=== PATIENT | female | born 1940 | race Caucasian/White ===

== ENCOUNTER 2018-08-05 15:50 | Inpatient (IN) ==
[2018-08-05] MEDS ORDERED: Post-op Orders (for Pharmacy) OTHER ONE (17:08)
[2018-08-05] MEDS ORDERED: Naloxone Inj 0.4 MG/ML Vial IV.PUSH PRN (17:08)
[2018-08-05] MEDS ORDERED: Bisacodyl 10 MG Supp RECTAL PRN (17:08)
--- NOTE | 2018-08-05 18:03 | MH ---
cc: Anuradha Mata MD DATE OF ADMISSION: 08/05/2018 ADMITTING PHYSICIAN: Anuradha Mata MD, surgeon of critical care/trauma/vascular surgery. REASON FOR ADMISSION: Abdominal pain, multiple related medical/surgical problems. HISTORY OF PRESENT ILLNESS: This is an 78-year-old pleasant lady who lives between [place] and [place], broke her humerus about a month ago in [place], [place]. She was admitted to the hospital and on the same day fell in the hospital and broke her hip. The patient underwent pinning and ORIF of both. The patient was kept in the hospital and discharged home, and request was made to transfer patient to [place] for further care because the patient is experiencing functional decline. The patient is now admitted as a direct admit to our hospital for further care and management of multiple problems. The patient is a somewhat demented, but answers simple questions appropriately. She is complaining about the chronic abdominal pain and clearly has suffered functional decline since the fracture of the humerus and hip. PAST MEDICAL HISTORY: Hypertension, GERD, severe COPD. The patient is on multiple bronchodilators. Fracture of the hip, fracture of the humerus, as above noted, with surgery for both, and possible diagnosis, possible question of multiple myeloma, which has not been resolved. SOCIAL HISTORY: The patient used to smoke until about a month ago, about half pack a day for 60 years. Drinks only socially. MEDICATIONS: Can be found on the record. PHYSICAL EXAMINATION: GENERAL: Reveals a pleasant, 78-year-old lady, somewhat pleasantly demented. HEENT: Normocephalic. No trauma to the head. Pupils are equal and reactive. Extraocular muscles intact. No hemotympanum. NECK: Bilateral carotid pulses. Faint right-sided carotid bruit. No lymphadenopathy in the neck, supraclavicular, infraclavicular, axillary, or inguinal areas. CHEST: Bilateral breath sounds, decreased over both lungs flores consistent with moderate to severe COPD. The patient has loss of the chest wall musculature and signs and symptoms of pulmonary cachexia and on that superimposed functional decline with a weight loss of about 10 pounds over a short period of time. HEART: Regular rhythm. ABDOMEN: Patulous, soft, hypoactive bowel sounds. No masses, rebound or guarding. The patient is thin. I can feel her intestine essentially through the abdominal wall. No masses noted. Groins appeared to be normal. I do not see any hernias. EXTREMITIES: The patient has actually palpable femoral pulses, palpable popliteal pulses, the dorsalis pedis and posterior tibial pulses. BACK: Grossly normal. Scars from previous surgery note in the upper and lower extremities. NEUROLOGIC: As noted above, the patient has some degree of dementia; however, she is a very pleasant and with simple questions she answers appropriately. She can feed herself. She can walk around and of course recognizes her surroundings. MUSCULOSKELETAL: She is fully intact with limitations of the fracture of the arm and the leg. The patient at this point is ambulatory only with a fairly significant assistance. SENSORY: She has preserved deep tendon reflexes are normal. No pathologic reflexes. Cranial nerves 2 through 12, normal. Charlotte coma scale is 15. IMPRESSION AND RECOMMENDATIONS FOLLOWUP: The patient has multiple medical problems as outlined above. It comes down to functional decline precipitated by a fracture of the humerus followed by a fracture of the hip and clearly some recovery in the face of her age. Nonetheless, this patient is in fairly reasonable shape and has a high recovery potential. Appropriate services are consulted including Dr. Hinds for Physical Medicine and Rehabilitation, as well as OT and PT, Gastroenterology, Dr. Ashish Chowdhury, and further workup is in progress. MD SIVA Torres/jacky , 05:31 PM , 05:42 PM
--- NOTE | 2018-08-05 18:09 | XR ---
EXAM DATE: 08/05/2018 5:56 PM EST AGE/SEX: 78 years / Female INDICATIONS: Shortness of breath. CLINICAL DATA: This is the patient's initial encounter. Patient reports that signs and symptoms have been present for 1 day and indicates a pain score of 0/10. MEDICAL/SURGICAL HISTORY: None. None. COMPARISON: TLI, CTA ABDOMEN AND AORTA, 11/18/2015. . FINDINGS: A single AP view of the chest demonstrates the lungs to be symmetrically aerated without evidence of mass, infiltrate or effusion. The cardiomediastinal contours are unremarkable. Old proximal left hum eral fracture. CONCLUSION: No acute findings. Emphysema. Electronically signed by: Allen Mock MD Board Certified Radiologist 08/05/2018 6:07 PM EST
--- NOTE | 2018-08-05 19:10 | P.CONIM ---
History of Present Illness Consult date: 08/05/18 Reason for Consult: medical management Primary Care Provider: mae Samaniego Chief Complaint: abdominal pain History of Present Illness: The patient is a very pleasant frail 78 year old female with PMH of GERD, diverticulosis, Hypertension, COPD, Santos's palsy, tobaccoism, mild dementia, anxiety and recent fall with left hip fracture and left humeral fracture s/p ORIF of both. The patient broke her humerus about a month ago in [place], [place]. She was admitted to the hospital and fell in the hospital and broke her hip, patient had pinning and ORIF of both. After hospitalization the patient is noted declining. The patient is admitted as direct admit to [facility]. The patient is complaining of intermittent abdominal pain, somewhat diffuse with RLQ being the most intense pain. No radiation of pain. There is associated intermittent diarrhea, tenesmus, decreased appetite, poor PO intake. The patient reports recent loss in weight about 10 lb, unintentional. Denies nausea or vomiting. Denies fever or chills. Denies any sob or wheezing. No palpitations, chest pain. No urinary complaints. The patient also complaints of cramps in her legs, intermittent. Also the patient was recently worked up for multiple myeloma, per family had a bone marrow biopsy done by the orthopedic Dr in [place] at the time of surgery and results were negative for MM. Review of Systems Review of Systems: all other systems reviewed are negative PMFSH History History Provided By: Patient and Family Member Medical History Medical History Anxiety (Acute) COPD (chronic obstructive pulmonary disease) (Acute) Fall (Acute) GERD (gastroesophageal reflux disease) (Acute) HTN (hypertension) (Acute) Mild dementia (Acute) Surgical History Surgical History History of hip surgery (Acute) History of shoulder surgery (Acute) Family History Family History Other Alzheimer's dementia Social History Social History Substance History: No History of Abuse Second Hand Smoke Exposure: No Smoking Status: Former smoker Tobacco Type: Cigarettes Packs Per Day: 0.5 Cigarettes Per Day: 10.0 Years Smoked: 60 Pack-Years: 30.00 Smoking End Date: ~ a month ago How Often Do You Have a Drink Containing Alcohol: Never Hx Recent Travel: No Recent Travel in [facility] within the Last 8 Weeks: No Recent Out of Country Travel within the Last 8 Weeks: No Medications and Allergies Allergies Allergy/AdvReac Type Severity Reaction Status Date / Time carbamazepine AdvReac Intermediate Unverified 01/31/17 20:32 ANTIBIOTICS AdvReac Intermediate RASH Uncoded 07/28/13 09:57 Home Medications Medication Instructions Recorded Confirmed Type B1,B2,B3,B6,Y14-vzogvv-Yl-guym PO TID 08/05/18 History [Eldertonic] Calcium 600 See Label Instructions .ROUTE 08/05/18 08/05/18 History .COMPLEX Culturelle Probiotics PO DAILY 08/05/18 History Tylenol Extra Strength 08/05/18 History Vitamin B-2 08/05/18 08/05/18 History Vitamin D3 08/05/18 History Zofran PRN 08/05/18 History buspirone See Label Instructions .ROUTE 08/05/18 08/05/18 History .COMPLEX dicyclomine 20 PO TID 08/05/18 History donepezil 10 mg PO HS 08/05/18 08/05/18 History esomeprazole magnesium [Nexium] 40 mg PO DAILY 08/05/18 08/05/18 History fluoxetine 20 mg PO DAILY 08/05/18 08/05/18 History folic acid 1 mg PO DAILY 08/05/18 08/05/18 History hydroxyzine pamoate 25 mg PO TID-QID 08/05/18 08/05/18 History meclizine PRN 08/05/18 History melatonin 08/05/18 History rosuvastatin [Crestor] 10 mg PO DAILY 08/05/18 08/05/18 History tramadol PRN 08/05/18 08/05/18 History Active Medications: Active Medications Acetaminophen (Tylenol Liq) 650 mg PO Q6H PRN PRN Reason: PAIN 1-10 AND/OR FEVER >101F Al Hydroxide/Mg Hydroxide (Milk Of Magnesia Liq) 30 ml PO Q12H PRN PRN Reason: Mild Constipation Bisacodyl (Dulcolax Supp) 10 mg RECTAL DAILY PRN PRN Reason: SEVERE CONSITIPATION Buspirone HCl (Buspar) 10 mg PO BID BEATRICE Dicyclomine HCl (Bentyl) 10 mg PO QID BEATRICE Enoxaparin Sodium (Lovenox Inj) 40 mg SQ Q24H [facility]ATRICE Fluoxetine HCl (Prozac Liq) 20 mg PO DAILY BEATRICE Sodium Chloride (Ns Inj) 1,000 mls @ 60 mls/hr IV.CONT .[id number] [facility] Lactulose (Lactulose Liq) 30 ml PO DAILY PRN PRN Reason: SEVERE CONSITIPATION Naloxone HCl (Narcan Inj) 0.4 mg IV.PUSH UNSCH PRN PRN Reason: SEE LABEL COMMENTS Ondansetron HCl (Zofran Inj) 4 mg IV.PUSH Q6H PRN PRN Reason: NAUSEA OR VOMITING Pantoprazole Sodium (Protonix) 40 mg PO DAILY [facility] Senna/Docusate Sodium (Khushboo-Colace) 1 tab PO BID BEATRICE Sennosides (Senokot) 17.2 mg PO Q12H PRN PRN Reason: Moderate Constipation Tramadol HCl (Ultram) 50 mg PO Q8H PRN PRN Reason: Acute Pain Exceptiom Physical Exam Narrative: GENERAL: Very pleasant frail 78 yo female, appears in nad. SKIN: Warm and dry. HEAD: Atraumatic. Normocephalic. EYES: Pupils equal and round. No scleral icterus. No injection or drainage. ENT: No nasal bleeding or discharge. Mucous membranes pink and moist. NECK: Trachea midline. No JVD. CARDIOVASCULAR: Regular rate and rhythm. RESPIRATORY: No accessory muscle use. Decreased breath sounds. No wheezing. Loss of muscle consistent with pulmonary cachexia. GASTROINTESTINAL: Abdomen soft, diffuse tenderness, nondistended, flat, hyperactive BS in lower abdomen. No rebound. MUSCULOSKELETAL: Muscle waisting. Previous surgical scars upper and lower extremity. Extremities without clubbing, cyanosis, or edema. No obvious deformities. NEUROLOGICAL: Awake and alert. Pleasantly confused. Santos's palsy No obvious cranial nerve deficits except 7th nerve 2/2 previous Santos's palsy. Otherwise motor grossly within normal limits. Normal speech. PSYCHIATRIC: Appropriate mood and affect; insight and judgment normal. Results Imaging Impressions Chest X-Ray 08/05/18 00:00 CONCLUSION: No acute findings. Emphysema. ABG Impressions Chest X-Ray 08/05/18 00:00 CONCLUSION: No acute findings. Emphysema. Assessment and Plan Plan Very pleasant 78 yo female with: Abdominal pain, chronic. Patient takes dicyclomine, PPI, restarted. Patient also has associated diarrhea, decreased PO intake and also unintentional weight loss ~ 10 lb. H/o GERD and diverticulosis. Last seen by her GI in [place] one year ago. Will consult GI for eval. Severe protein calorie malnutrition. Will order prealbumin. Add ensure to diet. 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 Functional decline precipitated by a fracture of the humerus followed by a fracture of the hip. Consult PT/OT/ Dr Hinds. Pain meds as need. H/o COPD not with exacerbation. Patient is not taking many meds. Duonebs prn . Tobaccoism, counselled. Patient quit smoking ~ 1 month ago. Insomnia: melatonin as need Anxiety: resume home meds Mild dementia: resume home meds Muscle cramps will check electrolytes, add as need flexeryl DVT ppx scd teds lovenox Thank you for this consultation, we will follow along
[2018-08-05] MEDS: Enoxaparin Inj 40 MG/0.4 ML Syringe SQ SCH (19:51)
[2018-08-05] MEDS: Dicyclomine 10 MG Capsule PO SCH (19:51)
[2018-08-05 20:31] LABS: Baso % (Auto) 0.6 % (0.0-2.0); Eos # (Auto) 0.1 th/mm3 (0.0-0.4); Eos % (Auto) 1.4 % (0.0-4.0); Hematocrit 31.6 % (35.0-46.0); Hemoglobin 10.6 gm/dL (11.6-15.3); Lymph # (Auto) 1.8 th/mm3 (1.0-4.8); Lymph % (Auto) 27.4 % (9.0-44.0); Mean Corpuscular HGB Conc 33.4 % (32.0-36.0); Mean Corpuscular Hemoglobin 33.8 pg (27.0-34.0); Mean Corpuscular Volume 101.1 fL (80.0-100.0); Mean Platelet Volume 8.6 fL (7.0-11.0); Mono # (Auto) 0.6 th/mm3 (0.0-0.9); Mono % (Auto) 8.6 % (0.0-8.0); Neut # (Auto) 4.1 th/mm3 (1.8-7.7); Platelet Count 288 th/mm3 (150-450); Red Blood Count 3.13 mil/mm3 (4.00-5.30); Red Cell Distribution Width 16.6 % (11.6-17.2); White Blood Count 6.6 th/mm3 (4.0-11.0)
[2018-08-05 20:44] LABS: INR 1.1 Ratio; Prothrombin Time 10.9 sec (9.8-11.6)
[2018-08-05] MEDS: Senna/Docusate Sodium 8.6/50 MG Tablet PO SCH (20:51)
[2018-08-05] MEDS: Sod Chloride 0.9% Inj 1,000 ML IV.CONT SCH (20:52)
[2018-08-05 20:55] LABS: Alanine Aminotransferase 12 U/L (10-53)
[2018-08-05 20:57] LABS: Albumin 2.7 g/dL (3.4-5.0); Anion Gap 5 meq/L (5-15); Aspartate Aminotransferase 21 U/L (15-37); Blood Urea Nitrogen 13 mg/dL (7-18); Calcium 8.5 mg/dL (8.5-10.1); Chloride 108 meq/L (98-107); Glomerular Filtration Rate 62 mL/min (>89); Glucose,Random 110 mg/dL (74-106); Sodium 141 meq/L (136-145)
[2018-08-05 20:58] LABS: Alkaline Phosphatase 99 U/L (45-117); Total Protein 7.4 g/dL (6.4-8.2)
--- NOTE | 2018-08-05 23:02 | US ---
EXAM DATE: 08/05/2018 10:53 PM EST AGE/SEX: 78 years / Female INDICATIONS: Bruit. CLINICAL DATA: This is the patient's initial encounter. Patient reports that signs and symptoms have been present for 1 day and indicates a pain score of 0/10. MEDICAL/SURGICAL HISTORY: Chronic obstructive pulmonary disease. Gastroesophageal reflux disea se. Hypertension. Hip fracture. None. COMPARISON: TLI, CTA ABDOMEN AND AORTA, 11/18/2015. . VELOCITY PARAMETERS: ICA/CCA Ratio: Right 2.0 , Left 0.9 ICA: Right 116 cm/sec, Left 90 cm/sec CCA: Right 57 cm/sec, Left 103 cm/sec ECA: Right 66 cm/sec, Left 120 cm/sec Vertebral: Right 87 cm/sec antegrade, Left 102 cm/sec antegrade FINDINGS: Right Carotid: Moderate arteriosclerotic plaque is visualized.The waveforms are within normal limits . Left Carotid: Moderate arteriosclerotic plaque is visualized. The waveforms are within normal limits . Other: None. CONCLUSION: 1. Right Internal Carotid Artery: Moderate atherosclerotic plaquing throughout the common carotid ex tending up into the bifurcation with Doppler velocities and ratios suggesting a 50-69% associated eloy nosis. 2. Left Internal Carotid Artery: Moderate atherosclerotic plaquing throughout the common carotid ext ending up into the bifurcation with no sonographic or Doppler findings of a hemodynamically significa nt stenosis. 3. Antegrade flow in both vertebral arteries. Electronically signed by: Ricky Castaneda MD Board Certified Radiologist 08/05/2018 11:01 PM EST
--- NOTE | 2018-08-05 23:04 | US ---
EXAM DATE: 08/05/2018 10:54 PM EST AGE/SEX: 78 years / Female INDICATIONS: Bilateral leg swelling post hip fracture. CLINICAL DATA: This is the patient's initial encounter. Patient reports that signs and symptoms have been present for 1 day and indicates a pain score of 2/10. MEDICAL/SURGICAL HISTORY: Chronic obstructive pulmonary disease. Gastroesophageal reflux disea se. Hypertension. Hip fracture. None. COMPARISON: No prior exams available for comparison. TECHNIQUE: Venous ultrasound of both lower extremities was performed from the inguinal ligament to t he proximal calf. Real-time, color Doppler and spectral tracing, compression and augmentation techni ques were used. FINDINGS: Right Leg: Normal compression of the deep venous system from the inguinal region to the proximal ivanna f. No echogenic clot is seen. Normal response of the venous system to augmentation and respiration. Left Leg: Normal compression of the deep venous system from the inguinal region to the proximal calf . No echogenic clot is seen. Normal response of the venous system to augmentation and respiration. Other: Dense atherosclerotic calcification throughout the visualized portions of the lower extremity arterial system bilaterally. CONCLUSION: Negative exam. No sonographic or Doppler findings of deep venous thrombosis. Electronically signed by: Ricky Castaneda MD Board Certified Radiologist 08/05/2018 11:02 PM EST
[2018-08-06 05:59] LABS: Baso # (Auto) 0.1 th/mm3 (0.0-0.2); Eos # (Auto) 0.1 th/mm3 (0.0-0.4); Eos % (Auto) 2.4 % (0.0-4.0); Hematocrit 34.4 % (35.0-46.0); Hemoglobin 11.3 gm/dL (11.6-15.3); Lymph # (Auto) 2.1 th/mm3 (1.0-4.8); Mean Corpuscular HGB Conc 32.8 % (32.0-36.0); Mean Corpuscular Hemoglobin 33.3 pg (27.0-34.0); Mean Corpuscular Volume 101.7 fL (80.0-100.0); Mean Platelet Volume 8.5 fL (7.0-11.0); Mono # (Auto) 0.5 th/mm3 (0.0-0.9); Mono % (Auto) 8.8 % (0.0-8.0); Neut # (Auto) 2.8 th/mm3 (1.8-7.7); Neut % (Auto) 50.8 % (16.0-70.0); Platelet Count 295 th/mm3 (150-450); Red Blood Count 3.38 mil/mm3 (4.00-5.30); Red Cell Distribution Width 16.7 % (11.6-17.2); White Blood Count 5.6 th/mm3 (4.0-11.0)
[2018-08-06 06:30] LABS: Anion Gap 4 meq/L (5-15); Blood Urea Nitrogen 11 mg/dL (7-18); Calcium 8.5 mg/dL (8.5-10.1); Carbon Dioxide 29.7 meq/L (21.0-32.0); Chloride 111 meq/L (98-107); Glomerular Filtration Rate 68 mL/min (>89); Glucose,Random 83 mg/dL (74-106); Iron 37 mcg/dL (50-170); Potassium 3.7 meq/L (3.5-5.1); Sodium 145 meq/L (136-145)
[2018-08-06 06:54] LABS: % Iron Saturation 16.1 % (20-50); Ferritin 135 ng/mL (8-252); Prealbumin 13 mg/dL (20-40); Total Iron Binding Capacity 230 mcg/dL (250-450); Vitamin B12 853 pg/mL (193-986)
[2018-08-06] MEDS: Dicyclomine 10 MG Capsule PO SCH ×4 (08:17→20:24)
[2018-08-06] MEDS: Senna/Docusate Sodium 8.6/50 MG Tablet PO SCH ×2 (08:17→20:24)
--- NOTE | 2018-08-06 09:13 | P.PNIM ---
Subjective Interval history: in no acute distress. has mild epigastric pain and on and off nausea. Physical Exam Vital signs: Vital Signs 08/05/18 20:00 08/06/18 00:10 08/06/18 04:05 Temperature 97.5 F L 97.4 F L 97.6 F Pulse Rate 56 L 63 63 Respiratory Rate 17 17 16 Blood Pressure 130/63 132/63 135/61 Pulse Oximetry 93 L 94 L 95 Intake & Output 08/05/18 08/06/18 08/06/18 18:59 06:59 18:59 Intake Total 360 / 360 Balance 360 / 360 Weight 43.2 kg Intake: Oral 360 / 360 Other: # Voids 5 # Bowel Movements 0 Constitutional no acute distress Routine Respiratory Exam Present CTA bilaterally Routine Cardiovascular Exam Present RRR Routine Abdominal Exam Present soft and tenderness Comments: mild epigastric tenderness. Routine Extremities Exam Comments: no pedal edema. Routine Neurological Exam Present alert Results Labs CBC & Chem 7: 08/06/18 05:23 08/06/18 05:23 Imaging Imaging: Impressions Carotid Doppler Study 08/05/18 00:00 CONCLUSION: 1. Right Internal Carotid Artery: Moderate atherosclerotic plaquing throughout the common carotid extending up into the bifurcation with Doppler velocities and ratios suggesting a 50-69% associated stenosis. 2. Left Internal Carotid Artery: Moderate atherosclerotic plaquing throughout the common carotid extending up into the bifurcation with no sonographic or Doppler findings of a hemodynamically significant stenosis. 3. Antegrade flow in both vertebral arteries. Chest X-Ray 08/05/18 00:00 CONCLUSION: No acute findings. Emphysema. Venous Doppler Study 08/05/18 00:00 CONCLUSION: Negative exam. No sonographic or Doppler findings of deep venous thrombosis. Assessment and Plan Plan A/P Abdominal pain, chronic. Patient takes dicyclomine, PPI, restarted. Patient also has associated diarrhea, decreased PO intake and also unintentional weight loss ~ 10 lb. H/o GERD and diverticulosis. Last seen by her GI in [place] one year ago. awaiting GI evaluation. Severe protein calorie malnutrition. continue ensure to diet. 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 Functional decline precipitated by a fracture of the humerus followed by a fracture of the hip. Consulted PT/OT/ Dr Hinds. Pain meds as need. near-syncope carotid doppler with no significant stenosis- echo pending. H/o COPD not with exacerbation. Patient is not taking many meds. Duonebs prn . Tobaccoism, counselled. Patient quit smoking ~ 1 month ago. Insomnia: melatonin as need Anxiety: resumed home meds Mild dementia: resumed home meds DVT ppx scd teds lovenox Progress Note: Quality VTE Deep Vein Thrombosis/Pulmonary Embolism Present on Admission: No
[2018-08-06] MEDS: Sod Chloride 0.9% Inj 1,000 ML IV.CONT SCH (12:48)
--- NOTE | 2018-08-06 14:13 | MB ---
cc: Katarina Bhandari MD DATE: 08/06/2018 REASON FOR CONSULTATION: Abdominal pain. HISTORY OF PRESENT ILLNESS: This is a very pleasant 78-year-old female known to me from the office several years ago. She has a history of irritable bowel syndrome in the past. She lives between [place], [place]. She was apparently in her usual state of health until about a month ago, had a fall and had a fractured humerus, which required surgical intervention. She was admitted in the hospital. During the hospitalization, she did reasonably well and sometime near the end of her hospital stay, she did have a second fall and sustained a hip fracture, which required ORIF. She had good resolution of her hip pain with rehabilitation, but during that time, she has been noted to have decline in her appetite, reduced p.o. intake, as well as complaints of having pain. Her main complaint currently is intermittent abdominal discomfort in the bilateral lower quadrants below the umbilicus in the suprapubic region. She denies any radiation to the groin or radiation up into the abdomen. It is difficult to ascertain if food is related to that, but it is noted that she avoids eating to avoid having pain. She has intermittent bowel habit changes including diarrhea and constipation, but denies any blood in the stool. She does have a 24-hour caregiver with her that helps with the history taking. Overall, due to the several hospitalizations and the abdominal symptoms, her oral intake has gone down, which has led to about 10 pounds of unintentional weight loss. She has no fevers, chills. No nausea or vomiting. There is some mention of abnormalities in her urine that may have showed protein and further workup was performed and just prior to her fall, she was to get a bone marrow biopsy and evaluation of multiple myeloma. During the hip surgery, an intraoperative bone marrow biopsy was performed and according to the patient's family, this was negative, that she does not have multiple myeloma. A lot of this history is taken from the patient and the family members that are at bedside who are very informed and appropriate. Unfortunately, I do not have any records to review at this time. PAST MEDICAL HISTORY: Irritable bowel syndrome, anxiety, COPD, GERD, hypertension, dementia. PAST SURGICAL HISTORY: Recent hip repair surgery and humerus repair surgery. FAMILY HISTORY: Alzheimer dementia. SOCIAL HISTORY: No history of illicit drug use. History of tobacco use and no alcohol use. ALLERGIES: CARBAMAZEPINE. HOME MEDICATIONS: Please see MAR for complete accurate list. REVIEW OF SYSTEMS: A 12-point review of system was obtained and showed negative or noncontributory except for the above-mentioned in the HPI. PHYSICAL EXAMINATION: VITAL SIGNS: Temperature 97.4, heart rate of 72, respirations 20, blood pressure 140/77, 98 mean and 92% on room air. GENERAL: Alert, oriented. No focal deficits. Cranial nerves 2-12 grossly intact. Distant memory intact. Slight forgetfulness, but answers questions appropriately. HEENT: Atraumatic. Slight temporal wasting. Pupils equal, round, reactive to light and accommodations. NECK: Supple. No carotid bruits noted. CARDIAC: S1, S2 normal. No murmur. LUNGS: CTAB. No wheeze heard. Respirations are nonlabored. ABDOMEN: Soft. Minimal tenderness to palpation in the suprapubic region. No rebound appreciated. No periumbilical ecchymosis noted. No flank tenderness noted. No hepatosplenomegaly appreciated. No tenderness noted in the epigastric region. EXTREMITIES: No edema noted. No hip tenderness. MUSCULOSKELETAL: Equal length of upper and lower extremities. Good range of motion. GENITOURINARY: No CVA tenderness. LYMPHATICS: No lymphadenopathy noted. NEUROLOGIC: Alert and oriented. No focal deficits. PSYCHIATRIC: Cooperative, appropriate mood and affect. LABORATORY DATA: WBC 5.6, hemoglobin 11.3, platelet count of 295. Sodium 145, potassium 3.0, chloride 111, bicarbonate 29, BUN 11, creatinine 0.81. Iron saturation 16. AST 21, ALT 12, alkaline phosphatase 99. IMPRESSION: 1. Abdominal pain in the suprapubic region, etiology unclear. Wide differential diagnosis including occult urinary tract infection, cystitis, genitourinary versus colonic or small bowel. Less likely to be diverticular. 2. History of irritable bowel syndrome. 3. Weight loss with reduced oral intake. RECOMMENDATIONS: 1. CT scan of the abdomen and pelvis with and without contrast. 2. Diet as tolerated without restrictions. Encourage oral intake. Discussed with the patient and family that if she continues to lose weight, we may consider offering a feeding tube, but she is adamant that is not a way that she wants and she did not wish to have a feeding tube placed. Therefore, at this time, in regard to increasing her nutrition, it will be by encouraging more oral intake. Recommended nutrition supplement such as Ensure, Boost or Magic Cup. 3. Suprapubic pain that may be related to urinary disease. Therefore, at this time, I will add Pyridium to see if that would improve her suprapubic symptoms. Also order a urinalysis with culture and sensitivities to rule out any occult urinary tract infection. 4. This was discussed in great detail with the patient and the family and they are in agreement and very appreciative of this plan. Thank you for allowing me to participate in the care of the patient. We will follow along with you and make recommendations as per the patient's clinical course. Katarina Bhandari MD KRP/es , 01:28 PM , 01:44 PM
[2018-08-06 14:20] LABS: Bacteria,Urine Few /hpf; Bilirubin,Urine Negative (Negative); Clarity,Urine Hazy (Clear); Color,Urine Amber (Yellw/Straw); Glucose,Urine (UA) Negative (Negative); Leukocyte Esterase,Urine Trace (Negative); Mucus,Urine Few /lpf (Occasional); Nitrite,Urine Positive (Negative); Specific Gravity,Urine 1.013 (1.002-1.035); Squamous Epithelial Cell,Urine 3 /hpf (0-5); Urobilinogen,Urine 0.2 mg/dL (Less than 2)
--- NOTE | 2018-08-06 15:18 | ECG ---
Date Performed: 08/05/2018 Time Performed: 21:18:42 PTAGE: 78 years EKG: Sinus rhythm NORMAL ECG Since PREVIOUS TRACING , no significant change noted PREVIOUS TRACIN07/28/2013 10.12 DOCTOR: Junior Glynn Interpretating Date/Time 08/06/2018 15:17:31
--- NOTE | 2018-08-06 16:11 | P.DIET ---
Nutritional Evaluation Type of nutrition evaluation: initial Nutrition consult regarding: Diet Evaluation Nutrition screening: Poor PO Intake Screening comments: 08/06/18 [facility] [place] PPI (protein calorie malnutrition) Subjective Subjective Comments: Family member present during RD visit. Pt seemed unmotivated and uninterested in food when speaking about diet and appetite. RD encouraged pt to increase PO intake and told her to ask for foods she would like to eat to family members and staff. Objective - Diagnosis abdominal pain - Objective Body Mass Index: 18.6 % IBW: 119 (IBW = 80lb) Body Weight Used for Calculations: Actual Energy Needs - Lower Range (kCal/kg): 28 Energy Needs - Upper Range (kCal/kg): 32 Lower Limit kCal/kg (kCals): 1,210 Upper Limit kCal/kg (kCals): 1,382 Lower Limit Protein Factor (Grams per Kg): 1.2 Upper Limit Protein Factor (Grams per Kg): 1.4 Lower Protein Needs (Protein): 52 Upper Protein Needs (Protein): 61 Dietitian Reviewed in Medical Record: Current diet, Curent medications, Intake & Output, Labs, Medical history Diet Order: full liquid diet, w/ ensure original TID Oral Diet Intake Amount: Poor <50% Objective Comments: PMH: GERD, HTN, mild dementia Meds: MVI LabS: estGFR 68 Assessment Assessment: Pt currently at nutritional risk r/t reported poor PO intake. Per chart, pt reported a total of 10lb of unintentional wt loss for pt prior to admission. Pt had a decreased appetite and poor PO intake. Pt currently on a full liquid diet w/ Ensure Original TID and consuming a variable intake of 25-75% per chart. RD to recommend encouraging PO intake and provide feeding assistance as needed. Continue to monitor PO and supplement intake, diet advancement. Labs reviewed, dietitian following. Recommendations: 1. RD to recommend encouraging PO intake and provide feeding assistance as needed 2. Continue to monitor PO and supplement intake, diet advancement 3. Dietitian following Dietitian to Monitor: Lab values, Intake & Output, Diet tolerance, Weight change , PO Intake, Medical course
--- NOTE | 2018-08-06 17:08 | P.PNVS ---
Subjective Subjective/Hospital Course: 6-year-old lady with multiple medical problems including noticeable functional decline and moderate degree of cognitive disorder, status post humerus and hip fracture now with some degree of abdominal pain and poor appetite Patient was admitted yesterday worked up This morning she is awake alert oriented Hemodynamically stable Bilateral breath sounds decreased consistent with COPD Abdomen is soft with active bowel sounds very patulous but patient simply not hungry and hence the poor oral intake Laboratory studies are unremarkable Urinary cultures pending GI consult by Dr. Bhandari is greatly appreciated and so is the OT and PT evaluation Was evaluated by Dr. Hinds patient will most likely transferred to [facility] for further rehabilitation Patient is encouraged to take p.o. Nothing to add to care at this time Objective Vital Signs / I&O: Vital Signs 08/05/18 20:00 08/06/18 00:10 08/06/18 04:05 Temperature 97.5 F L 97.4 F L 97.6 F Pulse Rate 56 L 63 63 Respiratory Rate 17 17 16 Blood Pressure 130/63 132/63 135/61 Pulse Oximetry 93 L 94 L 95 08/06/18 08:00 Temperature 97.4 F L Pulse Rate 72 Respiratory Rate 20 Blood Pressure 140/77 Pulse Oximetry 92 L Intake & Output 08/05/18 08/06/18 08/06/18 18:59 06:59 18:59 Intake Total 360 / 360 1000 / 1000 Balance 360 / 360 1000 / 1000 Weight 43.2 kg 43.2 kg Intake: IV 1000 / 1000 NS Inj 1,000 ML @ 60 mls/hr IV. 1000 / 1000 CONT .[id number] [facility] Rx#:[id number] Oral 360 / 360 Other: # Voids 5 Date of Last Bowel Movement 08/06/18 # Bowel Movements 0 Weight On Admission 43.2 kg Laboratory Results - last 24 hr 08/05/18 08/05/18 08/05/18 19:32 19:32 19:32 WBC 6.6 RBC 3.13 L Hgb 10.6 L Hct 31.6 L MCV 101.1 H MCH 33.8 MCHC 33.4 RDW 16.6 Plt Count 288 MPV 8.6 Neut % (Auto) 62.0 Lymph % (Auto) 27.4 [place] % (Auto) 8.6 H Eos % (Auto) 1.4 Baso % (Auto) 0.6 Neut # (Auto) 4.1 Lymph # (Auto) 1.8 [place] # (Auto) 0.6 Eos # (Auto) 0.1 Baso # (Auto) 0.0 WBC Differential . Differential Comment Auto diff final PT 10.9 INR 1.1 Sodium 141 Potassium 4.0 Chloride 108 H Carbon Dioxide 28.0 Anion Gap 5 BUN 13 Creatinine 0.88 Estimated GFR 62 L Random Glucose 110 H Calcium 8.5 Iron TIBC % Saturation Ferritin Total Bilirubin 0.2 Direct Bilirubin Less than 0.1 Indirect Bilirubin 0.1 AST 21 ALT 12 Alkaline Phosphatase 99 Total Protein 7.4 Albumin 2.7 L Prealbumin Vitamin B12 Vitamin D 25-Hydroxy Folate TSH Urine Color Urine Clarity Urine pH Ur Specific [place] Urine Protein Urine Glucose (UA) Urine Ketones Urine Occult Blood Urine Nitrate Urine Bilirubin Urine Urobilinogen Ur Leukocyte Esterase Urine RBC Urine WBC Ur Squamous Epith Cells Urine Bacteria Urine Mucus Micro UA Comment Ur Microscopic Review Urine Culture Comments 08/06/18 08/06/18 08/06/18 05:23 05:23 13:50 WBC 5.6 RBC 3.38 L Hgb 11.3 L Hct 34.4 L MCV 101.7 H MCH 33.3 MCHC 32.8 RDW 16.7 Plt Count 295 MPV 8.5 Neut % (Auto) 50.8 Lymph % (Auto) 37.0 [place] % (Auto) 8.8 H Eos % (Auto) 2.4 Baso % (Auto) 1.0 Neut # (Auto) 2.8 Lymph # (Auto) 2.1 [place] # (Auto) 0.5 Eos # (Auto) 0.1 Baso # (Auto) 0.1 WBC Differential . Differential Comment Auto diff final PT INR Sodium 145 Potassium 3.7 Chloride 111 H Carbon Dioxide 29.7 Anion Gap 4 L BUN 11 Creatinine 0.81 Estimated GFR 68 L Random Glucose 83 Calcium 8.5 Iron 37 L TIBC 230 L % Saturation 16.1 L Ferritin 135 Total Bilirubin Direct Bilirubin Indirect Bilirubin AST ALT Alkaline Phosphatase Total Protein Albumin Prealbumin 13 L Vitamin B12 853 Vitamin D 25-Hydroxy 47.4 Folate Greater than 20.0 H TSH 1.920 Urine Color Yazmin Urine Clarity Hazy H Urine pH 6.0 Ur Specific [place] 1.013 Urine Protein Negative Urine Glucose (UA) Negative Urine Ketones Negative Urine Occult Blood Negative Urine Nitrate Positive H Urine Bilirubin Negative Urine Urobilinogen 0.2 Ur Leukocyte Esterase Trace H Urine RBC 3 Urine WBC 8 H Ur Squamous Epith Cells 3 Urine Bacteria Few H Urine Mucus Few H Micro UA Comment Culture indicated Ur Microscopic Review Not Reportable Urine Culture Comments Culture indicated Impressions Carotid Doppler Study 08/05/18 00:00 CONCLUSION: 1. Right Internal Carotid Artery: Moderate atherosclerotic plaquing throughout the common carotid extending up into the bifurcation with Doppler velocities and ratios suggesting a 50-69% associated stenosis. 2. Left Internal Carotid Artery: Moderate atherosclerotic plaquing throughout the common carotid extending up into the bifurcation with no sonographic or Doppler findings of a hemodynamically significant stenosis. 3. Antegrade flow in both vertebral arteries. Chest X-Ray 08/05/18 00:00 CONCLUSION: No acute findings. Emphysema. Venous Doppler Study 08/05/18 00:00 CONCLUSION: Negative exam. No sonographic or Doppler findings of deep venous thrombosis.
[2018-08-06] MEDS: Enoxaparin Inj 40 MG/0.4 ML Syringe SQ SCH (17:45)
--- NOTE | 2018-08-06 19:07 | ECHRPT ---
Indication: Shortness of Breath CONCLUSIONS The left ventricular systolic function is normal with an estimated ejection fraction in the range of 55-60%. Trace mitral valve regurgitation. There is mild tricuspid valve regurgitation. BP: / HR: Rhythm: MEASUREMENTS (Male / Female) Normal Values Technical Quality:Fair 2D ECHO LV Diastolic Diameter PLAX 3.4 cm 4.2 - 5.9 / 3.9 - 5.3 cm LV Systolic Diameter PLAX 2.4 cm IVS Diastolic Thickness 0.8 cm 0.6 - 1.0 / 0.6 - 0.9 cm LVPW Diastolic Thickness 0.8 cm 0.6 - 1.0 / 0.6 - 0.9 cm LV Relative Wall Thickness 0.5 RV Internal Dim ED PLAX 1.8 cm LVOT Diameter 1.6 cm Aortic Root Diameter 2.4 cm LA Systolic Diameter LX 2.4 cm 3.0 - 4.0 / 2.7 - 3.8 cm DOPPLER AV Peak Velocity 151.0 cm/s AV Peak Gradient 9.1 mmHg LVOT Peak Velocity 103.0 cm/s LVOT Peak Gradient 4.2 mmHg AV Area Cont Eq pk 1.4 cm Mitral E Point Velocity 82.4 cm/s Mitral A Point Velocity 87.4 cm/s Mitral E to A Ratio 0.9 LV E' Lateral Velocity 8.2 cm/s Mitral E to LV E' Lateral Ratio 10.1 LV E' Septal Velocity 6.7 cm/s Mitral E to LV E' Septal Ratio 12.2 TR Peak Velocity 266.0 cm/s TR Peak Gradient 28.3 mmHg Right Atrial Pressure 10.0 mmHg Pulmonary Artery Systolic Pressu 38.3 mmHg Right Ventricular Systolic Press 38.3 mmHg PV Peak Velocity 89.6 cm/s PV Peak Gradient 3.2 mmHg FINDINGS LEFT VENTRICLE Normal left ventricular size. Wall thickness is normal. The left ventricular systolic function is normal with an estimated ejection fraction in the range of 55-60%. RIGHT VENTRICLE Grossly normal LEFT ATRIUM The left atrial size is normal. RIGHT ATRIUM The right atrial size is normal. ATRIAL SEPTUM Normal atrial septal thickness without atrial level shunting by limited color doppler interrogation. AORTA The aortic root and proximal ascending aorta are normal in size on limited imaging. MITRAL VALVE Structurally normal mitral valve. No mitral valve stenosis. Trace mitral valve regurgitation. AORTIC VALVE Trileaflet aortic valve. No aortic valve stenosis or regurgitation. TRICUSPID VALVE Structurally normal tricuspid valve. There is mild tricuspid valve regurgitation. The estimated pulmonary arterial pressure is 38 mmHg. PULMONARY VALVE No pulmonary valve regurgitation or stenosis. VESSELS The inferior vena cava is normal in size. PERICARDIUM No pericardial effusion. Cristian Bain DO (Electronically Signed) Final Date:06 August 2018 19:06
[2018-08-06] MEDS: Melatonin 5 MG Tablet PO PRN (20:24)
--- NOTE | 2018-08-06 22:18 | CT ---
EXAM DATE: 08/06/2018 10:11 PM EST AGE/SEX: 78 years / Female INDICATIONS: Abdominal pain and weight loss. CLINICAL DATA: This is the patient's initial encounter. Patient reports that signs and symptoms have been present for 2 days and indicates a pain score of 5/10. MEDICAL/SURGICAL HISTORY: Chronic obstructive pulmonary disease. Hypertension. Gastroesophage al reflux disease. . Hip surgery ORAL CONTRAST: No oral contrast ingested. RADIATION DOSE: 6.64 CTDI (mGy) COMPARISON: TLI, CTA ABDOMEN AND AORTA, 11/18/2015. . TECHNIQUE: Multiple contiguous axial images were obtained through the abdomen and pelvis following b olus infusion of 98 ml Omnipaque 350 (iohexol) nonionic water-soluble contrast as a single exam dos e. No oral contrast ingested. Using automated exposure control and adjustment of the mA and/or kV ac cording to patient size, radiation dose was kept as low as reasonably achievable to obtain optimal di agnostic quality images. DICOM format image data is available electronically for review and comparis on. FINDINGS: Mild emphysema at the lung bases. No acute findings in the liver, spleen, adrenals, kidneys or pancreas. Proximal celiac stenosis prese nt similar to prior CTA from November 2015. No free fluid. No bowel obstruction. No adenopathy. Previous screw fixation right femur. No acute bon y abnormalities. There is colonic diverticulosis without evidence for diverticulitis. CONCLUSION: 1. No acute findings. 2. Nonacute findings include proximal celiac stenosis similar to prior CTA from November 2015, emphysema , screw fixation right femur, colonic diverticulosis. Electronically signed by: Allen Mock MD Board Certified Radiologist 08/06/2018 10:17 PM EST
[2018-08-07] MEDS: Sod Chloride 0.9% Inj 1,000 ML IV.CONT SCH ×3 (05:11→20:25)
[2018-08-07] MEDS: Megestrol Acetate Liq 400 MG/10 ML UDC PO SCH (09:00)
[2018-08-07] MEDS: Dicyclomine 10 MG Capsule PO SCH ×4 (09:31→20:20)
--- NOTE | 2018-08-07 09:45 | P.PNIM ---
Subjective Interval history: in no acute distress. has mild lower abdominal discomfort. d/w the RN and no acute issues over night. Physical Exam Vital signs: Vital Signs 08/06/18 16:00 08/06/18 20:26 08/06/18 23:50 Temperature 97.8 F 97.3 F L 97.7 F Pulse Rate 71 79 88 Respiratory Rate 20 17 17 Blood Pressure 145/66 H 146/69 H 186/84 H Pulse Oximetry 92 L 95 94 L 08/07/18 05:19 08/07/18 08:00 Temperature 97.6 F 97.2 F L Pulse Rate 77 62 Respiratory Rate 16 19 Blood Pressure 182/80 H 120/58 L Pulse Oximetry 93 L 96 Intake & Output 08/06/18 08/07/18 08/07/18 18:59 06:59 18:59 Intake Total 1000 / 1000 1720 / 1720 Balance 1000 / 1000 1720 / 1720 Weight 43.2 kg 44.2 kg Intake: IV 1000 / 1000 1000 / 1000 NS Inj 1,000 ML @ 60 mls/hr IV. 1000 / 1000 1000 / 1000 CONT .[id number] [facility] Rx#:[id number] Oral 720 / 720 Other: # Voids 4 11 Date of Last Bowel Movement 08/06/18 08/06/18 # Bowel Movements 0 Weight On Admission 43.2 kg Constitutional no acute distress Routine Respiratory Exam Present CTA bilaterally Routine Cardiovascular Exam Present RRR Routine Abdominal Exam Present soft Routine Extremities Exam Comments: no pedal edema. Routine Neurological Exam Present alert Results Labs CBC & Chem 7: 08/06/18 05:23 08/06/18 05:23 Imaging Imaging: Impressions Abdomen/Pelvis CT 08/06/18 00:00 CONCLUSION: 1. No acute findings. 2. 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 Assessment and Plan Plan A/P Abdominal pain, chronic. Patient takes dicyclomine, PPI, restarted. Patient also has associated diarrhea, decreased PO intake and also unintentional weight loss ~ 10 lb. H/o GERD and diverticulosis. Last seen by her GI in [place] one year ago. GI consult appreciated. CT of the abdomen with no acute abnormality. Severe protein calorie malnutrition. continue ensure to diet. Consulted installer technician. Functional decline precipitated by a fracture of the humerus followed by a fracture of the hip. Consulted PT/OT/ Dr Hinds. Pain meds as need. near-syncope carotid doppler with no significant stenosis- echo with EF 55%. UTI start on Cipro and follow the UC. H/o COPD not with exacerbation. Patient is not taking many meds. Duonebs prn . Tobaccoism, counselled. Patient quit smoking ~ 1 month ago. Insomnia: melatonin as need Anxiety: resumed home meds Mild dementia: resumed home meds DVT ppx scd teds lovenox Discharge Planning: dc to rehab when cleared by GI. Progress Note: Quality VTE Deep Vein Thrombosis/Pulmonary Embolism Present on Admission: No
[2018-08-07] MEDS: Senna/Docusate Sodium 8.6/50 MG Tablet PO SCH ×2 (10:18→20:21)
--- NOTE | 2018-08-07 10:59 | P.PNGI ---
Subjective Interval history: Pt seen, reviewed Ct scan, labs and UA. events of last night d/w family. discussed CT with family. No acute findings. Stable celiac artery stenosis.no diverticulitis. UA positive. starter on cipro yesterday Physical Exam Vital signs: Vital Signs 08/06/18 16:00 08/06/18 20:26 08/06/18 23:50 Temperature 97.8 F 97.3 F L 97.7 F Pulse Rate 71 79 88 Respiratory Rate 20 17 17 Blood Pressure 145/66 H 146/69 H 186/84 H Pulse Oximetry 92 L 95 94 L 08/07/18 05:19 08/07/18 08:00 Temperature 97.6 F 97.2 F L Pulse Rate 77 62 Respiratory Rate 16 19 Blood Pressure 182/80 H 120/58 L Pulse Oximetry 93 L 96 Intake & Output 08/06/18 08/07/18 08/07/18 18:59 06:59 18:59 Intake Total 1000 / 1000 1720 / 1720 Balance 1000 / 1000 1720 / 1720 Weight 43.2 kg 44.2 kg Intake: IV 1000 / 1000 1000 / 1000 NS Inj 1,000 ML @ 60 mls/hr IV. 1000 / 1000 1000 / 1000 CONT .[id number] [facility] Rx#:[id number] Oral 720 / 720 Other: # Voids 4 11 Date of Last Bowel Movement 08/06/18 08/06/18 # Bowel Movements 0 Weight On Admission 43.2 kg - Constitutional no acute distress - Routine HEENT Exam Head: Present: normocephalic Eye: Present: EOMI ENT: Present: mucous membranes moist - Routine Neck Exam Present: supple - Routine Respiratory Exam Present: CTA bilaterally. Absent: accessory muscle use - Routine Cardiovascular Exam Present: RRR - Routine Abdominal Exam Present: soft - Routine Skin Exam Present: intact - Routine Neurological Exam Present: alert Results - Labs CBC & Chem 7: 08/06/18 05:23 08/06/18 05:23 Laboratory Results - last 24 hr 08/06/18 13:50 Urine Color Yazmin Urine Clarity Hazy H Urine pH 6.0 Ur Specific [place] 1.013 Urine Protein Negative Urine Glucose (UA) Negative Urine Ketones Negative Urine Occult Blood Negative Urine Nitrate Positive H Urine Bilirubin Negative Urine Urobilinogen 0.2 Ur Leukocyte Esterase Trace H Urine RBC 3 Urine WBC 8 H Ur Squamous Epith Cells 3 Urine Bacteria Few H Urine Mucus Few H Micro UA Comment Culture indicated Ur Microscopic Review Not Reportable Urine Culture Comments Culture indicated - Imaging Impressions Abdomen/Pelvis CT 08/06/18 00:00 CONCLUSION: 1. No acute findings. 2. 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 Assessment and Plan - Plan IMP: 1. Lower suprapubic pain - may be related to UTI. No clear acute abnormality on CT scan. 2. Weight loss - reduced appetite and poor oral intake - PEG tube was offered and pt declined 3. 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 Vascular surgery following 5. IBS 6. Advanced dementia PLAN: 1. Continue Bentyl 10 mg QId 2. Cipro 3. Pt encouraged to continue po intake, small frequent meals 4. Could consider Urology consult for recurrent UTI. 5. Surgical services to determine if celiac a. stenting would be beneficial? 6. No further workup or procedures planned from GI stand point. 7. Will stand by please call for questions.
[2018-08-07] MEDS: Ciprofloxacin 250 MG Tablet PO SCH ×2 (12:21→20:19)
--- NOTE | 2018-08-07 14:19 | P.PNVS ---
Subjective Subjective/Hospital Course: 6-year-old lady with multiple medical problems including noticeable functional decline and moderate degree of cognitive disorder, status post humerus and hip fracture now with some degree of abdominal pain and poor appetite Patient was admitted yesterday worked up This morning she is awake alert oriented Hemodynamically stable Bilateral breath sounds decreased consistent with COPD Abdomen is soft with active bowel sounds very patulous but patient simply not hungry and hence the poor oral intake Laboratory studies are unremarkable Urinary cultures pending GI consult by Dr. Bhandari is greatly appreciated and so is the OT and PT evaluation Was evaluated by Dr. Hinds patient will most likely transferred to [facility] for further rehabilitation Patient is encouraged to take p.o. Nothing to add to care at this time 08/07/2018 Patient doing very well She is awake alert and oriented Did forget some of the doctors she saw but this would not be unusual Hemodynamically stable Cardiac echo preformed and reveals 55-60% ejection fraction with minimal mitral regurgitation Bilateral carotid flow with a mild to moderate right internal carotid artery stenosis but in face age and asymptomatic status we will not workup any further for this Bilateral good breath sounds Abdomen soft active bowel sounds patient is slightly tender over suprapubic area but nothing other than that Her p.o. intake is still somewhat precarious and I placed her on Megace to may be helpful along GI consult is greatly appreciated CT scan of abdomen and pelvis does not reveal any acute abnormalities that would require attention Renal function preserved and in face of frequency and some suprapubic tenderness urology is consulted Patient was for a while and ciprofloxacin in the past so she might have grown out some other bacteria Rehab consult is greatly appreciated and when everything done patient will be discharged home with home health visits Objective Vital Signs / I&O: Vital Signs 08/06/18 16:00 08/06/18 20:26 08/06/18 23:50 Temperature 97.8 F 97.3 F L 97.7 F Pulse Rate 71 79 88 Respiratory Rate 20 17 17 Blood Pressure 145/66 H 146/69 H 186/84 H Pulse Oximetry 92 L 95 94 L 08/07/18 05:19 08/07/18 08:00 08/07/18 12:00 Temperature 97.6 F 97.2 F L 98.2 F Pulse Rate 77 62 67 Respiratory Rate 16 19 20 Blood Pressure 182/80 H 120/58 L 136/61 Pulse Oximetry 93 L 96 91 L Intake & Output 08/06/18 08/07/18 08/07/18 18:59 06:59 18:59 Intake Total 1000 / 1000 1720 / 1720 Balance 1000 / 1000 1720 / 1720 Weight 43.2 kg 44.2 kg Intake: IV 1000 / 1000 1000 / 1000 NS Inj 1,000 ML @ 60 mls/hr IV. 1000 / 1000 1000 / 1000 CONT .[id number] [facility] Rx#:[id number] Oral 720 / 720 Other: # Voids 4 11 Date of Last Bowel Movement 08/06/18 08/06/18 08/06/18 # Bowel Movements 0 Weight On Admission 43.2 kg Laboratory Results - last 24 hr 08/06/18 13:50 Urine Color Yazmin Urine Clarity Hazy H Urine pH 6.0 Ur Specific [place] 1.013 Urine Protein Negative Urine Glucose (UA) Negative Urine Ketones Negative Urine Occult Blood Negative Urine Nitrate Positive H Urine Bilirubin Negative Urine Urobilinogen 0.2 Ur Leukocyte Esterase Trace H Urine RBC 3 Urine WBC 8 H Ur Squamous Epith Cells 3 Urine Bacteria Few H Urine Mucus Few H Micro UA Comment Culture indicated Ur Microscopic Review Not Reportable Urine Culture Comments Culture indicated Microbiology 08/06/18 13:50 Urine Culture - Final Clean Catch Urine 50-100,000 cfu/mL mixed gram positive yina (probable contaminants) Impressions Carotid Doppler Study 08/05/18 00:00 CONCLUSION: 1. Right Internal Carotid Artery: Moderate atherosclerotic plaquing throughout the common carotid extending up into the bifurcation with Doppler velocities and ratios suggesting a 50-69% associated stenosis. 2. Left Internal Carotid Artery: Moderate atherosclerotic plaquing throughout the common carotid extending up into the bifurcation with no sonographic or Doppler findings of a hemodynamically significant stenosis. 3. Antegrade flow in both vertebral arteries. Chest X-Ray 08/05/18 00:00 CONCLUSION: No acute findings. Emphysema. Venous Doppler Study 08/05/18 00:00 CONCLUSION: Negative exam. No sonographic or Doppler findings of deep venous thrombosis. Abdomen/Pelvis CT 08/06/18 00:00 CONCLUSION: 1. No acute findings. 2. 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
--- NOTE | 2018-08-07 16:41 | MB ---
cc: Moises Rossn Baltazar DO DATE: 08/07/2018 HISTORY OF PRESENT ILLNESS: Ms. Zepeda is a pleasant 78-year-old female who has had intermittent lower abdominal pain. The patient suffered a fall in the past where she had a hip fracture and required an ORIF. Prior to this, she fractured her humerus requiring surgical intervention. She does state that she does have a history of urinary tract infections in the past. She denies incomplete emptying. She notes nocturia zero to 1 time. She does admit to taking baths frequently which could cause her recurrent urinary tract infections. She states she gets urinary tract infections approximately every 3-4 months. She denies having any difficulty moving her bowels or constipation. She denies any history of stones. She denies any fever, chills, nausea, vomiting. She does have a history of irritable bowel syndrome. MEDICAL HISTORY: COPD, GERD, hypertension, dementia, anxiety, irritable bowel syndrome. PAST SURGICAL HISTORY: Repair of recent hip surgery and humerus surgery. FAMILY HISTORY: Noted for Alzheimer's. SOCIAL HISTORY: Denies smoking, drinking or using drugs. ALLERGIES: Refer to the chart. MEDICATIONS: Refer to the chart. REVIEW OF SYSTEMS: A 12-point review of systems was obtained and was negative or noncontributory except for the HPI. PHYSICAL EXAMINATION: VITAL SIGNS: She is presently afebrile at 98.2, heart rate 67, respiratory 20, 136/61 blood pressure. GENERAL: She is a well-developed, well-nourished 78-year-old female in no acute distress. HEENT: Normocephalic, atraumatic. Pupils equal, round, regular and reactive to light. Extraocular movements intact. NECK: Supple. HEART: Regular rate and rhythm. LUNGS: Clear. ABDOMEN: Soft, nontender, nondistended. GENITOURINARY: Bladder is not distended on exam. Normal female external genitalia. EXTREMITIES: Show no cyanosis, clubbing, or edema. NEUROLOGIC: Cranial nerves 2 through 12 are intact. LABORATORY DATA: White count is 5.6, hemoglobin 11.3, hematocrit 34.4, platelet count of 295. Sodium 145, potassium 3.7, chloride 111, CO2 29.7, BUN of 11, creatinine 0.81, glucose of 83. Urinalysis is nitrite positive, 3 red cells and 8 white cells. Urine culture shows low colony count contaminant most likely with 50 to 100 CFU/mL, gram-positive yina. CT scan showed normal upper tracts with a decompressed bladder. ASSESSMENT AND PLAN: This is a pleasant 78-year-old female, status post fall, involving humerus and hip fracture, status post surgical repair. The patient with history of recurrent urinary tract infections. 1. Would recommend showers and not taking baths to reduce symptoms of urinary tract infections. 2. We will check postvoid residuals with the bladder scanner. If elevated, we will need a Jones catheter, but doubt that she is in retention, based on clinical and CT findings. I do not believe retention is the cause of her lower abdominal pain. We will check the bladder scanners. Thank you for the consult and allowing me to participate in the care of this patient. Enrrique Ross DO SWT/ct , 04:18 PM , 04:26 PM
[2018-08-07] MEDS: Enoxaparin Inj 40 MG/0.4 ML Syringe SQ SCH (17:45)
--- NOTE | 2018-08-07 20:02 | P.CONREH ---
History of Present Illness Consult date: 08/07/18 Reason for Consult: Comprehensive rehabilitation evaluation History of Present Illness: Lauren Zepeda is an 78-year-old [id number] female admitted to [facility] 08/05/18 with history of fall with humerus fracture 1 month prior to admission for which she was hospitalized. Patient was noted to have second fall in hospital with right hip fracture. She underwent ORIF of the right hip fracture and humerus fracture. She was admitted with severe protein calorie malnutrition and general decline. 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 Patient was seen by dietitian and supplementation has been provided. She was also started on Pyridium for suprapubic pain. She was evaluated by urology. Lower extremity Doppler was negative for DVT 08/05/18. Echocardiogram 08/06/18 showed ejection fraction 55-66%. She has been participating with physical therapy and is now minimal assistance for transfers and ambulating 40 feet with contact-guard to min assist. Review of Systems Constitutional: Reports frequent falls, Denies headache(s), Reports poor appetite, Reports weakness and Reports weight loss Eyes: Denies diplopia Ears, Nose, Mouth, and Throat: Denies dysphagia Cardiovascular: Denies chest pain Respiratory: Reports dyspnea on exertion Gastrointestinal: Reports constipation, Reports dyspepsia, Denies diarrhea, Denies nausea and Denies vomiting Genitourinary: Reports urinary incontinence Musculoskeletal: Denies numbness and Denies radiating pain into limb Skin/Breast: Denies skin ulcer and Denies sores Neurologic: Denies sensory deficit, Denies tingling, Denies paresthesias and Reports weakness Psychiatric: Reports confusion (Patient with history of mild dementia) Endocrine: Reports fatigue Hematologic/Lymphatic: Denies easy bruising Allergic/Immunologic: Denies throat swelling PMFSH History History Provided By: Patient and Family Member Medical History Medical History Anxiety (Acute) COPD (chronic obstructive pulmonary disease) (Acute) Fall (Acute) GERD (gastroesophageal reflux disease) (Acute) HTN (hypertension) (Acute) Mild dementia (Acute) Surgical History Surgical History History of hip surgery (Acute) History of shoulder surgery (Acute) Tobacco History Second Hand Smoke Exposure: No Tobacco Use In Past 30 Days: No Smoking Status: Former smoker Tobacco Type: Cigarettes Packs Per Day: 0.5 Cigarettes Per Day: 10.0 Years Smoked: 60 Pack Years: 30.00 Smoking End Date: ~ a month ago Alcohol History How Often Do You Have a Drink Containing Alcohol: Never Substance Use History Substance History: No History of Abuse Travel History History of Recent Travel: No Recent Travel in the [place] Within the Last 8 Weeks: No Recent Travel Out of the Country Within the Last 8 Weeks: No Immunization History Tetanus Immunization: Unsure Hx Influenza Vaccine This Season: Yes Medications and Allergies Allergies Allergy/AdvReac Type Severity Reaction Status Date / Time carbamazepine AdvReac Intermediate unknown Verified 08/06/18 00:14 ANTIBIOTICS AdvReac Intermediate Burning Uncoded 08/06/18 00:14 Home Medications Medication Instructions Recorded Confirmed Type B1,B2,B3,B6,H60-[id number]-[id number] PO TID 08/05/18 History [Eldertonic] Calcium 600 See Label Instructions .ROUTE 08/05/18 08/05/18 History .COMPLEX Culturelle Probiotics PO DAILY 08/05/18 History Tylenol Extra Strength 08/05/18 History Vitamin B-2 08/05/18 08/05/18 History Vitamin D3 08/05/18 History donepezil 10 mg PO HS 08/05/18 08/05/18 History esomeprazole magnesium [Nexium] 40 mg PO DAILY 08/05/18 08/05/18 History folic acid 1 mg PO DAILY 08/05/18 08/05/18 History hydroxyzine pamoate 25 mg PO TID-QID 08/05/18 08/05/18 History rosuvastatin [Crestor] 10 mg PO DAILY 08/05/18 08/05/18 History tramadol PRN 08/05/18 08/05/18 History Active Medications: Active Medications Acetaminophen (Tylenol Liq) 650 mg PO Q6H PRN PRN Reason: PAIN 1-10 AND/OR FEVER >101F Last Admin: 08/06/18 00:21 Dose: 650 mg Al Hydroxide/Mg Hydroxide (Milk Of Magnesia Liq) 30 ml PO Q12H PRN PRN Reason: Mild Constipation Bisacodyl (Dulcolax Supp) 10 mg RECTAL DAILY PRN PRN Reason: SEVERE CONSITIPATION Buspirone HCl (Buspar) 10 mg PO BID [facility] Last Admin: 08/07/18 09:31 Dose: 10 mg Ciprofloxacin HCl (Cipro) 250 mg PO Q12HR [facility] Last Admin: 08/07/18 12:21 Dose: 250 mg Cyclobenzaprine HCl (Flexeril) 5 mg PO HS PRN PRN Reason: muscle cramps Dicyclomine HCl (Bentyl) 10 mg PO QID [facility] Last Admin: 08/07/18 17:45 Dose: 10 mg Enoxaparin Sodium (Lovenox Inj) 40 mg SQ Q24H [facility] Last Admin: 08/07/18 17:45 Dose: 40 mg Fluoxetine HCl (Prozac Liq) 20 mg PO DAILY [facility] Last Admin: 08/07/18 09:32 Dose: 20 mg Sodium Chloride (Ns Inj) 1,000 mls @ 60 mls/hr IV.CONT .[id number] [facility] Last Admin: 08/07/18 05:18 Dose: 60 mls/hr Lactulose (Lactulose Liq) 30 ml PO DAILY PRN PRN Reason: SEVERE CONSITIPATION Megestrol Acetate (Megace Liq) 400 mg PO DAILY [facility] Last Admin: 08/07/18 09:00 Dose: 400 mg Melatonin (Melatonin) 5 mg PO HS PRN PRN Reason: INSOMNIA Last Admin: 08/06/18 20:24 Dose: 5 mg Multivitamins (Theragran) 1 tab PO DAILY [facility] Last Admin: 08/07/18 09:31 Dose: 1 tab Naloxone HCl (Narcan Inj) 0.4 mg IV.PUSH UNSCH PRN PRN Reason: SEE LABEL COMMENTS Ondansetron HCl (Zofran Inj) 4 mg IV.PUSH Q6H PRN PRN Reason: NAUSEA OR VOMITING Pantoprazole Sodium (Protonix) 40 mg PO DAILY [facility] Last Admin: 08/07/18 09:31 Dose: 40 mg Phenazopyridine HCl (Pyridium) 200 mg PO BID [facility] Last Admin: 08/07/18 09:31 Dose: 200 mg Senna/Docusate Sodium (Khushboo-Colace) 1 tab PO BID [facility] Last Admin: 08/07/18 10:18 Dose: Not Given Sennosides (Senokot) 17.2 mg PO Q12H PRN PRN Reason: Moderate Constipation Tramadol HCl (Ultram) 50 mg PO Q8H PRN PRN Reason: Acute Pain Exceptiom Exam Physical Examination Vital Signs / I&O: Vital Signs 08/06/18 20:26 08/06/18 23:50 08/07/18 05:19 Temperature 97.3 F L 97.7 F 97.6 F Pulse Rate 79 88 77 Respiratory Rate 17 17 16 Blood Pressure 146/69 H 186/84 H 182/80 H Pulse Oximetry 95 94 L 93 L 08/07/18 08:00 08/07/18 12:00 08/07/18 16:00 Temperature 97.2 F L 98.2 F 97.2 F L Pulse Rate 62 67 64 Respiratory Rate 19 Blood Pressure 120/58 L 136/61 135/64 Pulse Oximetry 96 91 L 95 Intake & Output 08/07/18 08/07/18 08/08/18 06:59 18:59 06:59 Intake Total 1720 / 1720 Balance 1720 / 1720 Weight 44.2 kg Intake: IV 1000 / 1000 NS Inj 1,000 ML @ 60 mls/hr IV. 1000 / 1000 CONT .[id number] [facility] Rx#:[id number] Oral 720 / 720 Other: Post Void Residual 0 # Voids 11 6 Date of Last Bowel Movement 08/06/18 08/06/18 # Bowel Movements 0 3 Intake & Output 08/05/18 08/06/18 08/07/18 08/08/18 06:59 06:59 06:59 06:59 Intake Total 360 / 360 2720 / 2720 Balance 360 / 360 2720 / 2720 Weight 43.2 kg 44.2 kg General: No acute distress and Other (Caregiver at bedside) Respiratory: Lungs CTA (Decreased breath sounds in the bases) and Coarse breath sounds Gastrointestinal: Positive bowel sounds, Non-distended and Non-tender Date of Last Bowel Movement: 08/06/18 Cardiovascular: Normal rate, No edema and Regular rhythm Skin: Incision (Right hip incision is well-healed) and No rash Musculoskeletal: ROM (Within functional limits) Psychiatric: Cooperative, Appropriate mood & affect and Other (Appears to be somewhat confused but not restless or agitated) Neurologic Orientation: oriented to: Self, Place (With cues) and Situation (With cues) and disoriented to: Time Neurologic: Cranial nerves (Intact 2 through 12) and Speech (No word finding difficulties or dysarthria) Motor: Right Upper Extremity (4/5), Left Upper Extremity (4/5), Right Lower Extremity (4/5) and Left Lower Extremity (4/5) Sensory: Intact to light touch in both upper and lower extremities Clonus: Negative Results Labs CBC & Chem 7: 08/06/18 05:23 08/06/18 05:23 Imaging Impressions Abdomen/Pelvis CT 08/06/18 00:00 CONCLUSION: 1. No acute findings. 2. 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 ABG Impressions Abdomen/Pelvis CT 08/06/18 00:00 CONCLUSION: 1. No acute findings. 2. 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 Assessment and Plan (1) Adult failure to thrive: Status: Acute Code(s): R62.7 - Adult failure to thrive (2) COPD (chronic obstructive pulmonary disease): Status: Chronic Code(s): J44.9 - Chronic obstructive pulmonary disease, unspecified (3) Frequent UTI: Status: Acute Code(s): N39.0 - Urinary tract infection, site not specified (4) Impaired cognition: Status: Acute Code(s): R41.89 - Other symptoms and signs involving cognitive functions and awareness (5) Impaired mobility and ADLs: Status: Acute Code(s): Z74.09 - Other reduced mobility Plan Assessment: 1. Humerus fracture status post ORIF with subsequent right femur fracture status post ORIF approximately 1 month prior to admission 2. Severe protein calorie malnutrition 3. Impaired mobility and ADLs 4. Hypertension 5. GERD/diverticulosis 6. Severe COPD 7. Recent workup for multiple myeloma 8. Mild dementia/anxiety Recommendations: 1. Physical therapy is mobilizing and patient is now minimal assistance for transfers and ambulating 40 feet contact-guard with minimal assistance. Continue to mobilize as tolerated anticipating that gait should progress. 2. Patient denies any significant pain complaints at this time. Monitor as she is mobilized. 3. Occupational Therapy is addressing ADLs and patient is minimal assistance 4. Patient will benefit from short inpatient rehabilitation to transition home. Family is working with case management to determine where she will be discharged as she has multiple homes in [place] and [place]. Discussed with nurse product coordinator. 5. Continue close supervision for safety and fall prevention 6. Continue nutritional supplementation per dietary recommendations. Discussed with patient who is agreeable to continue with trying to increase her p.o. intake 7. Will follow while hospitalized and is appropriate at discharge Thank you for this consult _ (1) COPD (chronic obstructive pulmonary disease) Qualifiers: COPD type: unspecified COPD Chronic bronchitis type: Emphysema type: Qualified Code(s): J44.9 - Chronic obstructive pulmonary disease, unspecified
[2018-08-07] MEDS: Melatonin 5 MG Tablet PO PRN (20:18)
--- NOTE | 2018-08-08 08:20 | P.PNIM ---
Subjective Interval history: in no acute distress. no fever. no dysuria but has some on and off suprapubic ' pressure '. Physical Exam Vital signs: Vital Signs 08/07/18 12:00 08/07/18 16:00 08/07/18 19:41 Temperature 98.2 F 97.2 F L 97.7 F Pulse Rate 67 64 64 Respiratory Rate 20 19 17 Blood Pressure 136/61 135/64 138/65 Pulse Oximetry 91 L 95 95 08/07/18 23:19 08/07/18 23:48 08/08/18 03:58 Temperature 98.5 F 98.2 F Pulse Rate 64 64 Respiratory Rate 18 17 17 Blood Pressure 153/70 H 148/72 H Pulse Oximetry 94 L 95 Intake & Output 08/07/18 08/08/18 08/08/18 18:59 06:59 18:59 Intake Total 1840 / 1840 Balance 1840 / 1840 Weight 43.7 kg Intake: IV 1000 / 1000 NS Inj 1,000 ML @ 60 mls/hr IV. 1000 / 1000 CONT .[id number] [facility] Rx#:[id number] Oral 840 / 840 Other: Post Void Residual 0 # Voids 6 8 Date of Last Bowel Movement 08/06/18 08/07/18 # Bowel Movements 3 0 Constitutional no acute distress Routine Respiratory Exam Present CTA bilaterally Routine Cardiovascular Exam Present RRR Routine Abdominal Exam Present soft Routine Extremities Exam Comments: no pedal edema. Routine Neurological Exam Present alert Results Labs CBC & Chem 7: 08/06/18 05:23 08/06/18 05:23 Labs: Microbiology 08/06/18 13:50 Clean Catch Urine Urine Culture - Final 50-100,000 cfu/mL mixed gram positive yina (probable contaminants) Assessment and Plan Plan A/P Abdominal pain, chronic. Patient takes dicyclomine, PPI, restarted. Patient also has associated diarrhea, decreased PO intake and also unintentional weight loss ~ 10 lb. H/o GERD and diverticulosis. Last seen by her GI in [place] one year ago. GI consult appreciated. CT of the abdomen with no acute abnormality. no further w/u at this time per GI. Severe protein calorie malnutrition. continue ensure to diet. 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 started on Megace. Functional decline precipitated by a fracture of the humerus followed by a fracture of the hip. Consulted PT/OT/ Dr Hinds. Pain meds as need. near-syncope carotid doppler with no significant stenosis- echo with EF 55%. UTI started on Cipro and follow the UC. Urology consult appreciated. H/o COPD not with exacerbation. Patient is not taking many meds. Duonebs prn . Tobaccoism, counselled. Patient quit smoking ~ 1 month ago. Insomnia: melatonin as need Anxiety: resumed home meds Mild dementia: resumed home meds DVT ppx scd teds lovenox Discharge Planning: dc home with [facility] when cleared by urology. Progress Note: Quality VTE Deep Vein Thrombosis/Pulmonary Embolism Present on Admission: No
[2018-08-08] MEDS: Ciprofloxacin 250 MG Tablet PO SCH ×2 (08:41→20:19)
[2018-08-08] MEDS: Dicyclomine 10 MG Capsule PO SCH ×2 (08:42→18:26)
[2018-08-08] MEDS: Senna/Docusate Sodium 8.6/50 MG Tablet PO SCH ×2 (08:42→20:20)
[2018-08-08] MEDS: Megestrol Acetate Liq 400 MG/10 ML UDC PO SCH (08:43)
[2018-08-08 10:03] VITALS: RESP 18
--- NOTE | 2018-08-08 12:28 | P.CONFP ---
History of Present Illness Service: Geriatric Assessment Primary Care Provider: mae Samaniego Chief Complaint: abdominal pain History of Present Illness: 78-year-old female who was admitted to this facility due to progressive functional impairment with failure to thrive following 2 falls which resulted in fractures of her left proximal humerus and right hip. Both falls occurred about 1 month ago at her home in [place]. The initial fall appeared to be a mechanical fall that resulted in a fracture of her left humeral head. She was hospitalized and while in the hospital had another fall which resulted in a fracture of her right hip. The left shoulder fracture was treated conservatively but she required operative repair of the right hip fracture. Following her surgery and acute hospitalization she transitioned to a rehab facility. She was noted to have a progressive functional decline with poor appetite, increased confusion and suggestions of adult failure to thrive. She was admitted directly to this facility for further evaluation and treatment. This morning the patient is seen in her hospital room with her personal aide in attendants. She is awake and alert and expresses herself well. She notes generalized aching, as she describes, "like being run over by a truck" but otherwise no acute problems are noted. She notes some soreness in her left shoulder and right hip but otherwise notes that she feels OK. She notes that her appetite is not good. She has had weight loss since her fractures. She has a h/o chronic abdominal pain which has been evaluated in the past and responded to the use of dicyclomine 20mg 2-3 times daily for several years. She has a h/o dementia over the last 2 years. Up until her falls and fractures she was exhibiting impairment in her instrumental activities of daily living but was still able to make phone calls. She was totally independent in her basic activities of daily living but had shirt sewer support since her diagnosis of dementia to assist her with her deficits. The exact etiology of her dementia is not documented but the slow onset and progression of her symptoms along with a family history in her mother and maternal Aunts of Alzheimer's disease would support that diagnosis. She has never had hallucinations, significant behavioral problems, focal neurologic deficits or motor movement abnormalities that would support the diagnosis of an alternative type of dementia. Since her hospitalization she has been evaluated by GI and had a CT of her abdomen and pelvis. No acute findings were noted. 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 She was seen by urology due to history of frequent urinary tract infections. Her urinalysis on this hospitalization did show trace leukocyte esterase with 8 WBCs, 3 RBCs and positive nitrites. Her culture showed 50-100,000 colonies of mixed gram-positive organisms. She has been on Cipro orally since the . She had a carotid Doppler study done that showed bilateral moderate atherosclerotic disease without significant obstruction. An echocardiogram was done that showed an ejection fraction of 55-60% with trace mitral regurgitation and mild tricuspid regurgitation. She had a venous ultrasound of her lower extremity that was negative for evidence of a DVT. Her EKG was normal. I reviewed her prehospital medication list with her daughter who is her primary caregiver. The list included a fairly high anticholinergic cognitive burden medications including dicyclomine 20 mg 3 times daily, hydroxyzine 25 mg 3 to 4 times daily, meclizine as needed. She apparently has a past history of vertigo for which she has used meclizine intermittently. Other significant medications included buspirone 10 mg twice daily. This medication had been started sometime ago with the initial diagnosis of dementia. The patient was experiencing anxiety associated with her perceived memory difficulties. She has been on fluoxetine 20 mg daily for greater than 10 years. She was on esomeprazole 40 mg daily but the daughter does not recall any history of peptic ulcer disease or significant indigestion. Other less significant medications which she is not currently pprescribed during this hospitalizaiton include rosuvastatin 10 mg daily and donepezil 10mg HS. The daughter does not think that there was much improvement in her cognitive function when she was taking the donepezil. . Review of Systems GEN: appetite has been diminished. Weight has decreased. HEENT: no change in vision or hearing is reported. Past h/o vertigo. RESP: no significant cough or SOB. Previous cigarette smoker who recently quit. CARDIAC: no palpitations or chest pain. No dyspnea with exertion GI: cramping lower abdominal pain. Long time aid notes that this has been worse when she does not have a BM. She reports that when she gave the patient increased fluid and applesause she would have a BM and the pain would be much less frequest. : h/o frequest urination and previous frequent LUTI's NEURO: no focal deficits reported. Short term memory impaired. Some visuospatial difficulties. Gait was relatively well preserved prior to her falls. PMFSH - History History Provided By: Patient, Family Member - Medical History Medical History: Medical History (Last Reviewed 08/07/18 @ 08:51 by Nirmala Omer) Anxiety COPD (chronic obstructive pulmonary disease) Fall GERD (gastroesophageal reflux disease) HTN (hypertension) Mild dementia - Surgical History Surgical History: Surgical History (Last Reviewed 08/07/18 @ 08:51 by Nirmala Omer) History of hip surgery History of shoulder surgery - Family History Family History: Family History (Last Reviewed 08/07/18 @ 08:44 by Fannie Chris) Other Alzheimer's dementia - Tobacco History Second Hand Smoke Exposure: No Tobacco Use In Past 30 Days: No Smoking Status: Former smoker Tobacco Type: Cigarettes Packs Per Day: 0.5 Cigarettes Per Day: 10.0 Years Smoked: 60 Pack Years: 30.00 Smoking End Date: ~ a month ago - Alcohol History How Often Do You Have a Drink Containing Alcohol: Never - Substance Use History Substance History: No History of Abuse - Travel History History of Recent Travel: No Recent Travel in the [place] Within the Last 8 Weeks: No Recent Travel Out of the Country Within the Last 8 Weeks: No - Immunization History Tetanus Immunization: Unsure Hx Influenza Vaccine This Season: Yes Medications and Allergies Active Medications: Active Medications Acetaminophen (Tylenol Liq) 650 mg PO Q6H PRN PRN Reason: PAIN 1-10 AND/OR FEVER >101F Last Admin: 08/06/18 00:21 Dose: 650 mg Al Hydroxide/Mg Hydroxide (Milk Of Magnesia Liq) 30 ml PO Q12H PRN PRN Reason: Mild Constipation Bisacodyl (Dulcolax Supp) 10 mg RECTAL DAILY PRN PRN Reason: SEVERE CONSITIPATION Buspirone HCl (Buspar) 10 mg PO BID [facility] Last Admin: 08/08/18 08:42 Dose: 10 mg Ciprofloxacin HCl (Cipro) 250 mg PO Q12HR [facility] Last Admin: 08/08/18 08:41 Dose: 250 mg Cyclobenzaprine HCl (Flexeril) 5 mg PO HS PRN PRN Reason: muscle cramps Dicyclomine HCl (Bentyl) 10 mg PO QID [facility] Last Admin: 08/08/18 08:42 Dose: 10 mg Enoxaparin Sodium (Lovenox Inj) 40 mg SQ Q24H [facility] Last Admin: 08/07/18 17:45 Dose: 40 mg Fluoxetine HCl (Prozac Liq) 20 mg PO DAILY [facility] Last Admin: 08/08/18 08:42 Dose: 20 mg Sodium Chloride (Ns Inj) 1,000 mls @ 60 mls/hr IV.CONT .[id number] [facility] Last Admin: 08/07/18 20:25 Dose: 60 mls/hr Lactulose (Lactulose Liq) 30 ml PO DAILY PRN PRN Reason: SEVERE CONSITIPATION Megestrol Acetate (Megace Liq) 400 mg PO DAILY [facility] Last Admin: 08/08/18 08:43 Dose: 400 mg Melatonin (Melatonin) 5 mg PO HS PRN PRN Reason: INSOMNIA Last Admin: 08/07/18 20:18 Dose: 5 mg Multivitamins (Theragran) 1 tab PO DAILY [facility] Last Admin: 08/08/18 08:42 Dose: 1 tab Naloxone HCl (Narcan Inj) 0.4 mg IV.PUSH UNSCH PRN PRN Reason: SEE LABEL COMMENTS Ondansetron HCl (Zofran Inj) 4 mg IV.PUSH Q6H PRN PRN Reason: NAUSEA OR VOMITING Pantoprazole Sodium (Protonix) 40 mg PO DAILY [facility] Last Admin: 08/08/18 08:42 Dose: 40 mg Phenazopyridine HCl (Pyridium) 200 mg PO BID [facility] Last Admin: 08/08/18 08:42 Dose: 200 mg Senna/Docusate Sodium (Khushboo-Colace) 1 tab PO BID [facility] Last Admin: 08/08/18 08:42 Dose: Not Given Sennosides (Senokot) 17.2 mg PO Q12H PRN PRN Reason: Moderate Constipation Tramadol HCl (Ultram) 50 mg PO Q8H PRN PRN Reason: Acute Pain Exceptiom Last Admin: 08/07/18 23:18 Dose: 50 mg Allergies Allergy/AdvReac Type Severity Reaction Status Date / Time carbamazepine AdvReac Intermediate unknown Verified 08/06/18 00:14 ANTIBIOTICS AdvReac Intermediate Burning Uncoded 08/06/18 00:14 Home Medications Medication Instructions Recorded Confirmed Type B1,B2,B3,B6,[id number] PO TID 08/05/18 History [Eldertonic] Calcium 600 See Label Instructions .ROUTE 08/05/18 08/05/18 History .COMPLEX Culturelle Probiotics PO DAILY 08/05/18 History Tylenol Extra Strength 08/05/18 History Vitamin B-2 08/05/18 08/05/18 History Vitamin D3 08/05/18 History Zofran PRN 08/05/18 History buspirone See Label Instructions .ROUTE 08/05/18 08/05/18 History .COMPLEX dicyclomine 20 PO TID 08/05/18 History donepezil 10 mg PO HS 08/05/18 08/05/18 History esomeprazole magnesium [Nexium] 40 mg PO DAILY 08/05/18 08/05/18 History fluoxetine 20 mg PO DAILY 08/05/18 08/05/18 History folic acid 1 mg PO DAILY 08/05/18 08/05/18 History hydroxyzine pamoate 25 mg PO TID-QID 08/05/18 08/05/18 History meclizine PRN 08/05/18 History melatonin 08/05/18 History rosuvastatin [Crestor] 10 mg PO DAILY 08/05/18 08/05/18 History tramadol PRN 08/05/18 08/05/18 History Exam Vital signs: Vital Signs 08/07/18 16:00 08/07/18 19:41 08/07/18 23:19 Temperature 97.2 F L 97.7 F 98.5 F Pulse Rate 64 64 64 Respiratory Rate 19 17 18 Blood Pressure 135/64 138/65 153/70 H Pulse Oximetry 95 95 94 L 08/07/18 23:48 08/08/18 03:58 08/08/18 08:00 Temperature 98.2 F 98.4 F Pulse Rate 64 66 Respiratory Rate 17 18 Blood Pressure 148/72 H 180/77 H Pulse Oximetry 95 96 Intake & Output 08/07/18 08/08/18 08/08/18 18:59 06:59 18:59 Intake Total 184 / 1840 Balance 184 / 184 Weight 43.7 kg Intake: IV 1000 / 1000 NS Inj 1,000 ML @ 60 mls/hr IV. 1000 / 1000 CONT .[id number] [facility] Rx#:[id number] Oral 840 / 840 Other: Post Void Residual 0 # Voids 6 8 Date of Last Bowel Movement 08/06/18 08/07/18 08/07/18 # Bowel Movements 3 0 Narrative: CONSTITUTIONAL/GEN: thin female with decreased BMI, appears younger than her chronological age, in NAD. EYES: conjunctiva normal, PERRLA, EOMI. ENT: Mouth and pharynx normal. NECK: thyroid midline, carotids symmetrical. LUNGS: clear A-P, respiratory effort is normal. CARDIOVASCULAR: RR without murmur or gallop. No significant edema. GI/ABD: soft without masses, without organomegaly. Non-tender without guarding. : no CVA tenderness NEURO: No focal deficits. SKIN: color normal, no rashes noted. HEME/LYMPH: no bruising, petechia or significant adenopathy MUSC: back is normal in appearance. Extremities are normal in appearance. Mild reduced ROM of left shoulder and right hip. PSYCH/MENTAL STATUS: Alert and oriented to person. Unsure of date, day, month or year. Knows she is in [place], but unsure of city. Delayed recall 0/3. Unable to spell WORLD or name with reversed letters.. Results - Labs Result diagrams: 08/06/18 05:23 08/06/18 05:23 Assessment and Plan - Assessment (1) Neurocognitive disorder Code(s): R41.9 - Unspecified symptoms and signs involving cognitive functions and awareness Status: Acute Plan: This patient appears to have mild/moderate dementia, probably of the Alzheimer' s type. She has been diagnosed x 2 years with baseline impairment of her instrumental activities of daily living. Prior to her recent problems she was independent in her basic activities of daily living. Some mild reported sun- downing symptoms were noted during this hospitalization. She had previously been prescribed donepezil which she currently is not taking and did not appear to have much of a positive response in the past. Gaviria recommendations for this problem would be to avoid or minimize medications with a significant cognitive burden; primarily anticholinergics and sedative/hypnotics. PT/OT will be very helpful along with improved nutritional status. (2) Declining functional status Code(s): R53.81 - Other malaise Status: Acute Plan: The current plan is for the patient to return to her familiar home in [place] with her personal care aids and family. She will be seen for outpatient rehabilitation services PT/OT to help restore previous baseline functional abilities. (3) Adult failure to thrive Code(s): R62.7 - Adult failure to thrive Status: Acute Plan: Frequent small meals have been recommended by GI. Consideration for a nutritional supplement such as Ensure to be give AFTER a meal to supplement caloric intake. Currently she is receiving Megace 400mg as an appetite stimulant. This is a slightly lower dose than normally used and this medication has some potential adverse effects regarding the risk for VTE. Mrs. Zepeda has a h/o depression. She has also had difficulty with sleep. I would suggest a trial of mirtazapine at an initial low dose of 7.5mg HS. To avoid possible adverse serotonergic problems I would recommend stopping the fluoxetine and buspirone for now. (4) Abdominal pain Code(s): R10.9 - Unspecified abdominal pain Status: Acute Plan: There appears to be a functional component to her abdominal pain. A good diet with fruits, vegetables, protein and adeuate fluids will hopefully improve bowel function and promote more normal BM's. She has a long history of cramping abdominal pain which has responded well in the past to dicyclomine 20mg 2-3 times daily. She currently is taking dicyclomine 10mg QID. This medication has anticholinergic side affects but does appear to have been helpful in the past. I would recommend a trial of prn dosing possibly 2-3 times daily when needed for relief of pain. (5) Macrocytosis Code(s): D75.89 - Other specified diseases of blood and blood-forming organs Status: Acute Plan: This patient has an increased MCV with low iron levels but normal B-12 and folic acid levels. She does NOT have a significant anemia. Normally this would make me think of a possible myelodysplastic syndrome but she apparently had a bone portillo assessment done by her orthopedic surgeon at the time of her hip fracture repair due to concern at that time for possible multiple myeloma. This bone marrow assessment was reportedly normal. Hopefully with an improved diet her iron levels will increase (I would be concerned that oral iron replacement might exacerbate constipation/abdominal pain). I would monitor for episodically for anemia. (6) Depression Code(s): F32.9 - Major depressive disorder, single episode, unspecified Status : Chronic Qualifiers: Depression Type: major depressive disorder Major depression recurrence: unspecified whether recurrent Active/Remission status: in remission of unspecified degree Qualified Code(s): F32.5 - Major depressive disorder, single episode, in full remission Plan: This patient has a h/o depression. She has been on fluoxetine for an extended period of time. Currently her other medical problems might benefit more from a change from fluoxetine to mirtazapine. She also has a h/o anxiety associated with her cognitive disorder. To avoid multiple serotonergic medications (she is currently on tramadol for moderate pain) I would discontinue both the fluoxetine and buspirone for now and observe response. (7) COPD (chronic obstructive pulmonary disease) Code(s): J44.9 - Chronic obstructive pulmonary disease, unspecified Status: Chronic Qualifiers: COPD type: unspecified COPD Qualified Code(s): J44.9 - Chronic obstructive pulmonary disease, unspecified Plan: Currently she has quit smoking for the last month. She is not symptomatic. I would encourage continued cessation of cigarette use. (8) Frequent UTI Code(s): N39.0 - Urinary tract infection, site not specified Status: Acute Plan: Patient was seen by urology and personal care recommendations were give. She has received 3 days of oral ciprofloxacin. Her u/a was only mildly abnormal and her culture showed [id number] col of mixed gram + organisms. Currently received treatment should be adequate.
--- NOTE | 2018-08-08 17:24 | P.DCO ---
Physical Therapy Order: Evaluate and treat Occupational Therapy Order: Evaluate and treat Home Health Nursing Order: Medical education, Signs/symptoms of disease process, Medication education-adverse effect and Nursing assessment with vital signs Case Management Consult Case Management Consult-Home Health: Yes I have seen patient Lauren Bhatia on 08/08/18. My clinical findings support the need for the requested home health care services because: Limited mobility due to disease progression I certify that my clinical findings support that this patient is homebound because: Unsteady gait/balance
--- NOTE | 2018-08-08 18:08 | P.PNVS ---
Subjective Subjective/Hospital Course: 6-year-old lady with multiple medical problems including noticeable functional decline and moderate degree of cognitive disorder, status post humerus and hip fracture now with some degree of abdominal pain and poor appetite Patient was admitted yesterday worked up This morning she is awake alert oriented Hemodynamically stable Bilateral breath sounds decreased consistent with COPD Abdomen is soft with active bowel sounds very patulous but patient simply not hungry and hence the poor oral intake Laboratory studies are unremarkable Urinary cultures pending GI consult by Dr. Bhandari is greatly appreciated and so is the OT and PT evaluation Was evaluated by Dr. Hinds patient will most likely transferred to [facility] for further rehabilitation Patient is encouraged to take p.o. Nothing to add to care at this time 08/07/2018 Patient doing very well She is awake alert and oriented Did forget some of the doctors she saw but this would not be unusual Hemodynamically stable Cardiac echo preformed and reveals 55-60% ejection fraction with minimal mitral regurgitation Bilateral carotid flow with a mild to moderate right internal carotid artery stenosis but in face age and asymptomatic status we will not workup any further for this Bilateral good breath sounds Abdomen soft active bowel sounds patient is slightly tender over suprapubic area but nothing other than that Her p.o. intake is still somewhat precarious and I placed her on Megace to may be helpful along GI consult is greatly appreciated CT scan of abdomen and pelvis does not reveal any acute abnormalities that would require attention Renal function preserved and in face of frequency and some suprapubic tenderness urology is consulted Patient was for a while and ciprofloxacin in the past so she might have grown out some other bacteria Rehab consult is greatly appreciated and when everything done patient will be discharged home with home health visits 08/08/2018 Patient doing much better today She is more alert awake and oriented Taking diet very well and ate a whole tray Appears to be stronger with physical and occupational therapy and overall medical care Great work by the entire team. Very grateful to expertise of Dr. Bowman and Dr. Samaniego. Grateful for consultation and evaluation as well as recommendations by Dr. Magui Hinds and internal medicine recommendations Patient will be discharged tomorrow Objective Vital Signs / I&O: Vital Signs 08/07/18 19:41 08/07/18 23:19 08/07/18 23:48 Temperature 97.7 F 98.5 F Pulse Rate 64 64 Respiratory Rate 17 18 17 Blood Pressure 138/65 153/70 H Pulse Oximetry 95 94 L 08/08/18 03:58 08/08/18 08:00 08/08/18 13:36 Temperature 98.2 F 98.4 F 97.9 F Pulse Rate 64 66 72 Respiratory Rate 17 18 18 Blood Pressure 148/72 H 180/77 H 122/58 L Pulse Oximetry 95 96 95 Intake & Output 08/07/18 08/08/18 08/08/18 18:59 06:59 18:59 Intake Total 1840 / 1840 Balance 1840 / 1840 Weight 43.7 kg Intake: IV 1000 / 1000 NS Inj 1,000 ML @ 60 mls/hr IV. 1000 / 1000 CONT .[id number] [facility] Rx#:[id number] Oral 840 / 840 Other: Post Void Residual 0 # Voids 6 8 Date of Last Bowel Movement 08/06/18 08/07/18 08/07/18 # Bowel Movements 3 0 Impressions Abdomen/Pelvis CT 08/06/18 00:00 CONCLUSION: 1. No acute findings. 2. 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
[2018-08-08] MEDS: Enoxaparin Inj 40 MG/0.4 ML Syringe SQ SCH (18:26)
[2018-08-08] MEDS: Sod Chloride 0.9% Inj 1,000 ML IV.CONT SCH (20:14)
[2018-08-08] MEDS ORDERED: Mirtazapine 15 MG Tablet PO SCH (21:00)
[2018-08-09] MEDS: Senna/Docusate Sodium 8.6/50 MG Tablet PO SCH (08:45)
[2018-08-09] MEDS: Ciprofloxacin 250 MG Tablet PO SCH (08:45)
[2018-08-09] MEDS: Dicyclomine 10 MG Capsule PO SCH (08:45)
--- NOTE | 2018-08-09 09:04 | P.PNIM ---
Subjective Interval history: in no acute distress. slept well last night. looks comfortable. d/w the caregiver and the RN at the bedside. Physical Exam Vital signs: Vital Signs 08/08/18 13:36 08/08/18 21:14 08/08/18 23:57 Temperature 97.9 F 98.1 F 98.5 F Pulse Rate 72 65 73 Respiratory Rate 18 18 18 Blood Pressure 122/58 L 156/70 H 156/81 H Pulse Oximetry 95 97 97 08/09/18 03:25 08/09/18 06:00 Temperature 97.9 F Pulse Rate 80 68 Respiratory Rate 18 Blood Pressure 180/88 H 166/78 H Pulse Oximetry 94 L Intake & Output 08/08/18 08/09/18 08/09/18 18:59 06:59 18:59 Intake Total 1480 / 1480 Balance 1480 / 1480 Weight 43.7 kg Intake: IV 1000 / 1000 NS Inj 1,000 ML @ 60 mls/hr IV. 1000 / 1000 CONT .[id number] [facility] Rx#:[id number] Oral 480 / 480 Other: # Voids 5 Date of Last Bowel Movement 08/07/18 08/07/18 # Bowel Movements 0 Constitutional no acute distress Routine Respiratory Exam Present CTA bilaterally Routine Cardiovascular Exam Present RRR Routine Abdominal Exam Present soft Routine Extremities Exam Comments: no pedal edema. Routine Neurological Exam Present alert Results Labs CBC & Chem 7: 08/06/18 05:23 08/06/18 05:23 Assessment and Plan (1) Neurocognitive disorder: Code(s): R41.9 - Unspecified symptoms and signs involving cognitive functions and awareness Status: Acute (2) Declining functional status: Code(s): R53.81 - Other malaise Status: Acute (3) Adult failure to thrive: Code(s): R62.7 - Adult failure to thrive Status: Acute (4) Abdominal pain: Code(s): R10.9 - Unspecified abdominal pain Status: Acute (5) Macrocytosis: Code(s): D75.89 - Other specified diseases of blood and blood-forming organs Status: Acute (6) Depression: Code(s): F32.9 - Major depressive disorder, single episode, unspecified Status: Chronic (7) COPD (chronic obstructive pulmonary disease): Code(s): J44.9 - Chronic obstructive pulmonary disease, unspecified Status: Chronic (8) Frequent UTI: Code(s): N39.0 - Urinary tract infection, site not specified Status: Acute Plan A/P Abdominal pain, chronic. Patient takes dicyclomine, PPI, restarted. Patient also has associated diarrhea, decreased PO intake and also unintentional weight loss ~ 10 lb. H/o GERD and diverticulosis. Last seen by her GI in [place] one year ago. GI consult appreciated. CT of the abdomen with no acute abnormality. no further w/u at this time per GI. Severe protein calorie malnutrition. continue ensure to diet. Consulted adjudication specialist. started on Megace. Functional decline precipitated by a fracture of the humerus followed by a fracture of the hip. Consulted PT/OT/ Dr Hinds. Pain meds as need. near-syncope carotid doppler with no significant stenosis- echo with EF 55%. UTI treated with cipro. Urology consult appreciated. H/o COPD not with exacerbation. Patient is not taking many meds. Duonebs prn . Tobaccoism, counselled. Patient quit smoking ~ 1 month ago. Insomnia: melatonin as need Anxiety: resumed home meds Mild dementia: resumed home meds family medicine consult appreciated. DVT ppx scd teds lovenox Discharge Planning: for discharge home today. Progress Note: Quality VTE Deep Vein Thrombosis/Pulmonary Embolism Present on Admission: No _ (1) Abdominal pain Qualifiers: Abdominal location: (2) Depression Qualifiers: Depression Type: major depressive disorder Major depression recurrence: unspecified whether recurrent Active/Remission status: in remission of unspecified degree Major depression episode severity: Psychotic features: Trimester: Qualified Code(s): F32.5 - Major depressive disorder, single episode, in full remission (3) COPD (chronic obstructive pulmonary disease) Qualifiers: COPD type: unspecified COPD Chronic bronchitis type: Emphysema type: Qualified Code(s): J44.9 - Chronic obstructive pulmonary disease, unspecified
[2018-08-09 09:15] VITALS: BP 138/64; PULSE 76; TEMP 98.4; O2SAT 93
== END 2018-08-09 10:59 | disposition home health service (06) | DRG 391 ==
LOC: N06 15:51
PROVIDERS: ADMIT Surgery; ATTEND Surgery
DX: F02.80 Dementia in other diseases classified elsewhere, unspecified severity, without behavioral disturbance, psychotic disturbance, mood disturbance, and anxiety; Z82.0 Family history of epilepsy and other diseases of the nervous system; J43.9 Emphysema, unspecified; D75.89 Other specified diseases of blood and blood-forming organs; I65.23 Occlusion and stenosis of bilateral carotid arteries; R54 Age-related physical debility; R10.30 Lower abdominal pain, unspecified; W19.XXXD Unspecified fall, subsequent encounter; K57.30 Diverticulosis of large intestine without perforation or abscess without bleeding; G30.9 Alzheimer's disease, unspecified; K21.9 Gastro-esophageal reflux disease without esophagitis; G47.00 Insomnia, unspecified; F05 Delirium due to known physiological condition; I10 Essential (primary) hypertension; F32.9 Major depressive disorder, single episode, unspecified; Z87.440 Personal history of urinary (tract) infections; S72.001D Fracture of unspecified part of neck of right femur, subsequent encounter for closed fracture with routine healing; R62.7 Adult failure to thrive; R55 Syncope and collapse; I77.4 Celiac artery compression syndrome; G51.0 Bell's palsy; K58.0 Irritable bowel syndrome with diarrhea; Z68.1 Body mass index [BMI] 19.9 or less, adult; E43 Unspecified severe protein-calorie malnutrition; S42.302D Unspecified fracture of shaft of humerus, left arm, subsequent encounter for fracture with routine healing; N39.0 Urinary tract infection, site not specified; F41.9 Anxiety disorder, unspecified; I08.1 Rheumatic disorders of both mitral and tricuspid valves; Z87.891 Personal history of nicotine dependence
CPT/HCPCS: 51798; 71010; 71045; 74177; 80048; 80076; 81001; 82306; 82607; 82728; 82746; 83540; 83550; 84134; 84443; 85025; 85610; 87086; 93005; 93306; 93880; 93970; 97110; 97162; 97167; 97530; 97535; J1650; J2405; J7030; Q9967